=== PATIENT | male | born 1985 | race Caucasian/White ===

== ENCOUNTER 2017-10-06 19:15 | Emergency (ER) | payer SELFPAY ==
[~2017-10-06] VITALS: Ht 182.9 cm; Wt 83.9 kg
[~2017-10-06 19:15] MED LIST: Ativan1 MG PO; Bactrim Ds Tab1 EACH PO; DIPH50 PO; HYDACE5 PO; HYDPAM25 PO; METPRE4DP PO; PRED10 PO; PRED20 PO; Percocet 5-3251 EACH PO; RXHYDACE PO; RXNEOPOLHC AS; Zithromax250 MG PO
[2017-10-06] MEDS ORDERED: Norco 5-325 Ta1 EACH PO (21:12)
[2017-10-06] MEDS ORDERED: IBUP600 PO (21:12)
== END 2017-10-06 21:25 | disposition home or self-care (01) ==
LOC: ER 19:15
DX: S52.301A Unspecified fracture of shaft of right radius, initial encounter for closed fracture (principal); S52.601A Unspecified fracture of lower end of right ulna, initial encounter for closed fracture; Z91.030 Bee allergy status; F17.210 Nicotine dependence, cigarettes, uncomplicated; W19.XXXA Unspecified fall, initial encounter
CPT/HCPCS: 25605; 36415; 73090; 73100; 96361; 96374; 96375; 96376; 99152; 99284; J2405; J3010; J7030

== ENCOUNTER 2018-08-28 17:14 | Emergency (ER) | payer SELFPAY ==
[~2018-08-28] VITALS: Ht 182.9 cm; Wt 83.9 kg
[~2018-08-28 17:14] MED LIST changes: +IBUP600 PO; +Norco 5-325 Ta1 EACH PO
[2018-08-28] MEDS ORDERED: INCARCERATION (18:07)
== END 2018-08-28 19:56 ==
LOC: ER 17:14
DX: T40.1X1A Poisoning by heroin, accidental (unintentional), initial encounter (principal)
CPT/HCPCS: 99283

== ENCOUNTER 2020-10-02 07:05 | Inpatient (IN) | payer OTHER ==
[~2020-10-02] VITALS: Ht 182.9 cm; Wt 95.9 kg
[~2020-10-02 07:05] MED LIST changes: +IBUP800 PO; +INCARCERATION; +ONDA4 PO
--- NOTE | 2020-10-02 14:15 | NUR ---
NO IV ACCESS PRESENT ON ADMISSION TO MEDICAL FLOOR. 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 CALLED [facility] AND RECIEVED AN ORDER FOR PICC LINE. CALLED NURSING [facility] TO SEE IF THERE IS A STAFF MEMBER AVAILABLE THAT CAN PLACE A PICC LINE. AWAITING A CALL BACK.
--- NOTE | 2020-10-02 14:29 | NUR ---
CALLED [facility] HE IS AWARE THAT THE PT HAS NO IV ACCESS. ORDER RECIEVED FOR PICC LINE INSERTION. IF UNABLE TO ACHIEVE ACCESS WITHIN 2 HOURS HE WOULD LIKE A CALL BACK AND A DIFFERENT METHODWILL BE ATTEMPTED.
--- NOTE | 2020-10-02 14:39 | NUR ---
ANOTHER RN PLANNED TO ATTEMPT A PERIPHERAL IV WITH ULTRASOUND UPON ENTERING THE ROOM IT WAS NOTED THAT THE PT IS GONE. PT HAD DRESSED COMPLETELY AND TAKEN HIS BELONGINGS. NOT SURE IF HE WENT OUTSIDE AND WILL BE RETURNING OR IF HE LEFT AMA.
--- NOTE | 2020-10-02 15:06 | NUR ---
CONTACTED SECURITY TO TRY TO LOCATE THE PT- SECURITY TRACKED THE PT TO THE EXIT WHERE HE GOT INTO A VEHICLE. CALLED [facility] HE IS AWARE PT HAS LEFT AMA. CALLED THE HOSPITALIST ASSIGNED TO THE PT DR STILL SHE IS ALSO AWARE. NURSING CORE BAKER AWARE WELL CHARGE RNS.
== END 2020-10-02 15:44 | disposition left against medical advice (07) | DRG 872 ==
LOC: ER 07:05 → MEDS 10:30
PROVIDERS: ADMIT Internal Medicine
DX: A41.02 Sepsis due to Methicillin resistant Staphylococcus aureus (principal); L02.511 Cutaneous abscess of right hand; L03.113 Cellulitis of right upper limb; L02.413 Cutaneous abscess of right upper limb; F17.210 Nicotine dependence, cigarettes, uncomplicated; G40.909 Epilepsy, unspecified, not intractable, without status epilepticus; B19.20 Unspecified viral hepatitis C without hepatic coma; F41.1 Generalized anxiety disorder; F11.10 Opioid abuse, uncomplicated; F15.10 Other stimulant abuse, uncomplicated; F14.10 Cocaine abuse, uncomplicated; Z53.29 Procedure and treatment not carried out because of patient's decision for other reasons
CPT/HCPCS: 10160; 76882; 87070; 87077; 87147; 87186; 87205; 99284-25; A9270

== ENCOUNTER 2021-04-10 19:47 | Emergency (ER) | payer OTHER ==
[~2021-04-10] VITALS: Ht 182.9 cm; Wt 95.2 kg
[2021-04-10] MEDS ORDERED: Cleocin HCl300 MG PO (21:06)
== END 2021-04-10 21:26 | disposition home or self-care (01) ==
LOC: ER 19:47
DX: L02.414 Cutaneous abscess of left upper limb (principal); F17.210 Nicotine dependence, cigarettes, uncomplicated; Z86.59 Personal history of other mental and behavioral disorders; Z91.038 Other insect allergy status
CPT/HCPCS: 10060; 99282-25; A9270

== ENCOUNTER 2022-04-25 07:22 | Emergency (ER) | payer SELFPAY ==
[~2022-04-25] VITALS: Ht 182.9 cm; Wt 97.5 kg
[~2022-04-25 07:22] MED LIST changes: +Cleocin HCl300 MG PO
[2022-04-25] MEDS ORDERED: METH40 (08:07)
[2022-04-25] MEDS ORDERED: HYDHCL25 PO (08:15)
[2022-04-25] MEDS ORDERED: PRED20 PO (08:15)
== END 2022-04-25 08:24 | disposition home or self-care (01) ==
LOC: ER 07:22
DX: L25.8 Unspecified contact dermatitis due to other agents (principal); F17.210 Nicotine dependence, cigarettes, uncomplicated; Z91.030 Bee allergy status; Z79.899 Other long term (current) drug therapy
CPT/HCPCS: 99282

== ENCOUNTER 2023-01-02 20:46 | Emergency (ER) | payer OTHER ==
[~2023-01-02] VITALS: Ht 182.9 cm; Wt 99.8 kg
[~2023-01-02 20:46] MED LIST changes: +HYDHCL25 PO; +METH40
[2023-01-02 20:49] VITALS: BP 120/81
[2023-01-02] MEDS ORDERED: Veetids 500500 MG PO (21:01)
== END 2023-01-02 21:08 | disposition home or self-care (01) ==
LOC: ER 20:46
DX: J02.0 Streptococcal pharyngitis (principal); Z91.030 Bee allergy status; G40.909 Epilepsy, unspecified, not intractable, without status epilepticus; F17.210 Nicotine dependence, cigarettes, uncomplicated
CPT/HCPCS: 87430; 96372; 99283-25; A9270; J1885

== ENCOUNTER 2023-02-05 11:12 | Emergency (ER) | payer OTHER ==
[~2023-02-05] VITALS: Ht 182.9 cm; Wt 102.1 kg
[~2023-02-05 11:12] MED LIST changes: +Veetids 500500 MG PO
[2023-02-05 11:20] VITALS: BP 137/82
[2023-02-05] MEDS ORDERED: HYDHCL25 PO (11:29)
== END 2023-02-05 11:34 | disposition home or self-care (01) ==
LOC: ER 11:12
DX: B65.3 Cercarial dermatitis (principal); Z91.030 Bee allergy status; G40.909 Epilepsy, unspecified, not intractable, without status epilepticus; F17.210 Nicotine dependence, cigarettes, uncomplicated
CPT/HCPCS: 99282

== ENCOUNTER 2023-03-29 19:42 | Emergency (ER) | payer OTHER ==
[~2023-03-29] VITALS: Ht 182.9 cm; Wt 99.8 kg
[2023-03-29 19:52] VITALS: BP 139/113
[2023-03-29] MEDS ORDERED: Percocet 5-3251 EACH PO (20:41)
[2023-03-30] MEDS ORDERED: TOPICAINE113 GM TOP (02:32)
== END 2023-03-29 20:57 | disposition home or self-care (01) ==
LOC: ER 19:42
DX: T23.252A Burn of second degree of left palm, initial encounter (principal); T23.202A Burn of second degree of left hand, unspecified site, initial encounter; T23.201A Burn of second degree of right hand, unspecified site, initial encounter; T31.0 Burns involving less than 10% of body surface; X08.8XXA Exposure to other specified smoke, fire and flames, initial encounter; W40.1XXA Explosion of explosive gases, initial encounter; Z79.02 Long term (current) use of antithrombotics/antiplatelets; G40.909 Epilepsy, unspecified, not intractable, without status epilepticus; F17.210 Nicotine dependence, cigarettes, uncomplicated
CPT/HCPCS: 96372; 99283-25; A9270; J1170; J3010

== ENCOUNTER 2024-04-17 07:30 | Emergency (ER) | payer OTHER ==
[~2024-04-17] VITALS: Ht 182.9 cm; Wt 93.0 kg
[~2024-04-17 07:30] MED LIST changes: +TOPICAINE113 GM TOP
[2024-04-17 07:47] VITALS: BP 17/88
== END 2024-04-17 09:10 | disposition home or self-care (01) ==
LOC: ER 07:30
DX: M79.662 Pain in left lower leg (principal); F17.210 Nicotine dependence, cigarettes, uncomplicated
CPT/HCPCS: 93971; 99283-25